=== PATIENT | male | born 1935 | race African-American/Black ===

== ENCOUNTER 2017-02-04 06:56 | Inpatient (IN) | payer MEDICARE, MEDICAID ==
[2017-02-04] MEDS ORDERED: NORMAL SALINE 1000 ML 1,000 ML IV ONE (07:09)
[2017-02-04] MEDS ORDERED: IPRATROPIUM/ALBUTEROL 0.5-2.5 MG/3 ML AMPUL NEB ONE (07:09)
--- NOTE | 2017-02-04 07:16 | ER Document Report ---
ED General - General Stated Complaint: BREATHING DIFFICULTY Time Seen by Provider: 02/04/17 06:59 Mode of Arrival: Medic Information source: Emergency Med Personnel, Outside Facility Records Cannot obtain history due to: Altered mental status Notes: 81-year-old male DO NOT RESUSCITATE presents from care facility with concerns for altered mental status respiratory distress. Patient was found by EMS to be satting in the mid 70s responsive only to painful stimuli, I was obtained in the left anterior tib-fib, patient's blood pressure was noted to be 60s over 40s. Per facility patient has not been taking his medications over the past few days and has not been eating or drinking TRAVEL OUTSIDE OF THE [place] IN LAST 30 DAYS: No - HPI Onset: Last week Onset/Duration: Persistent - Related Data Allergies/Adverse Reactions: No Known Allergies Allergy (Verified 08/02/15 08:51) Past Medical History - Social History Smoking Status: Never Smoker Cigarette use (# per day): No Chew tobacco use (# tins/day): No Smoking Education Provided: No Family History: Reviewed & Not Pertinent - Past Medical History Cardiac Medical History: Reports: Hx DVT, Hx Hypercholesterolemia, Hx Hypertension, Hx Peripheral Vascular Disease Pulmonary Medical History: Denies: Hx Tuberculosis - UNKNOWN Neurological Medical History: Reports: Hx Cerebrovascular Accident - left side deficit, Hx Seizures Endocrine Medical History: Reports: Hx Diabetes Mellitus Type 2 Renal/ Medical History: Reports: Hx Benign Prostatic Hyperplasia GI Medical History: Reports: Hx Gastroesophageal Reflux Disease Musculoskeltal Medical History: Reports Hx Arthritis, Reports Hx Musculoskeletal Deformity, Reports Hx Musculoskeletal Trauma Psychiatric Medical History: Reports: Hx Dementia, Hx Depression Past Surgical History: Reports: Hx Vascular Surgery - IVC filter. Denies: Hx Pacemaker - Immunizations Immunizations up to date: Yes Hx Diphtheria, Pertussis, Tetanus Vaccination: Yes Hx Pneumococcal Vaccination: 07/08/03 Review of Systems - Review of Systems Notes: PHYSICAL EXAMINATION: GENERAL: Ill-appearing male moderate respiratory distress cachectic HEAD: Atraumatic, normocephalic. EYES: Pupils equal round and reactive to light, extraocular movements intact, sclera anicteric, conjunctiva are normal. ENT: Nares patent, oropharynx clear without exudates. Moist mucous membranes. NECK: Normal range of motion, supple without lymphadenopathy LUNGS: Coarse breath sounds all throughout HEART: Tachycardic ABDOMEN: Soft, nontender, nondistended abdomen. No guarding, no rebound. No masses appreciated. Musculoskeletal: Normal range of motion, no pitting or edema. No cyanosis. NEUROLOGICAL: Responds to painful stimuli only, GCS 6 SKIN: Cold to touch Physical Exam - Vital signs Vitals: Temp Pulse Resp BP Pulse Ox 95.2 F L 107 H 45 H 60/52 L 85 L 02/04/17 07:00 02/04/17 07:00 02/04/17 07:00 02/04/17 07:00 02/04/17 07:00 Course - Re-evaluation Re-evalutation: 02/04/17 07:22 Patient was immediately bagged on arrival, nonrebreather was placed, lab work imaging are pending at this time. I have very poor prognosis for this patient given his DO NOT RESUSCITATE status 02/04/17 08:05 Spoke with family 02/04/17 08:14 Chest x-ray is consistent with pneumonia, patient meets sepsis criteria, levaquin started - Vital Signs Vital signs: Temp Pulse Resp BP Pulse Ox 95.2 F L 107 H 36 H 72/51 L 90 L 02/04/17 07:00 02/04/17 07:08 02/04/17 08:01 02/04/17 08:01 02/04/17 07:08 - Laboratory Result Diagrams: 02/04/17 07:26 02/04/17 07:26 Laboratory results interpreted by me: 02/04/17 07:26 WBC 29.1 H Hgb 12.4 L MCHC 31.7 L RDW 15.6 H Seg Neuts % (Manual) 85 H Band Neutrophils % 2 L Lymphocytes % (Manual) 7 L Metamyelocytes % 1 H Abs Neuts (Manual) 25.6 H Abs Monocytes (Manual) 1.5 H Critical Care Note - Critical Care Note Total time excluding time spent on procedures (mins): 40 Comments: 40 minutes of critical care time spent in direct contact evaluating and reevaluating the patient, treating symptoms, reviewing labs and studies and speaking with family and consultants excluding any procedures Discharge - Discharge Clinical Impression: Unresponsive state Sepsis Qualifiers: Sepsis type: sepsis due to unspecified organism Qualified Code(s): A41.9 - Sepsis, unspecified organism Pneumonia Qualifiers: Pneumonia type: due to unspecified organism Laterality: right Lung location: upper lobe of lung Qualified Code(s): J18.1 - Lobar pneumonia, unspecified organism Admitting Provider: [facility] Unit Admitted: Telemetry
[2017-02-04 07:43] LABS: HEMATOCRIT 39.2 % (37.9-51.0); HEMOGLOBIN 12.4 g/dL (13.5-17.0); MEAN CORPUSCULAR HEMOGLOBIN 27.6 pg (27.0-33.4); MEAN CORPUSCULAR HGB CONC 31.7 g/dL (32.0-36.0); MEAN CORPUSCULAR VOLUME 87 fl (80-97); RED CELL DISTRIBUTION WIDTH 15.6 % (11.5-14.0); WHITE BLOOD COUNT 29.1 10^3/uL (4.0-10.5)
[2017-02-04 07:59] LABS: ANISOCYTOSIS SLIGHT; BAND NEUTROPHILS % (MANUAL) 2 % (3-5); BASOPHILS % (MANUAL) 0 % (0-2); EOSINOPHILS % (MANUAL) 0 % (0-6); LYMPHOCYTES % (MANUAL) 7 % (13-45); NUCLEATED RED BLOOD CELLS 1 /100 WBC (0); PLATELET CLUMPS PRESENT; POLYCHROMASIA SLIGHT; ROULEAUX 2+; TOTAL CELLS COUNTED 100; TOXIC GRANULATION 1+; TOXIC VACUOLATION PRESENT
[2017-02-04] MEDS ORDERED: LEVOFLOXACIN 750 MG/D5W RTU 150 ML IV ONE (08:13)
[2017-02-04] MEDS ORDERED: NORMAL SALINE 1000 ML 1,000 ML IV PRN ×3 (08:14→17:57)
[2017-02-04 09:04] LABS: ALANINE AMINOTRANSFERASE 102 U/L (21-72); ALBUMIN 2.9 g/dL (3.5-5.0); ALKALINE PHOSPHATASE 135 U/L (38-126); ASPARTATE AMINO TRANSFERASE 172 U/L (17-59); BILIRUBIN,DIRECT 0.9 mg/dL (0.0-0.4); BILIRUBIN,TOTAL 0.9 mg/dL (0.2-1.3); BLOOD UREA NITROGEN 99 mg/dL (7-20); CALCIUM 8.2 mg/dL (8.4-10.2); CREATINE KINASE 557 U/L (55-170); GLUCOSE 351 mg/dL (75-110); TOTAL PROTEIN 7.5 g/dL (6.3-8.2)
[2017-02-04 09:13] LABS: CREATINE KINASE MB 0.61 ng/mL (<4.55)
[2017-02-04 09:14] LABS: ANION GAP 22 (5-19); CARBON DIOXIDE 17 mmol/L (22-30); CHLORIDE 124 mmol/L (98-107); POTASSIUM 4.9 mmol/L (3.6-5.0); SODIUM 162.9 mmol/L (137-145)
[2017-02-04 09:16] LABS: TROPONIN I 0.036 ng/mL
[2017-02-04 15:38] LABS: APPEARANCE,URINE TURBID; BILIRUBIN,URINE SMALL (NEGATIVE); GLUCOSE, URINE 150 mg/dL (NEGATIVE); KETONES,URINE TRACE mg/dL (NEGATIVE); LEUKOCYTE ESTERASE,URINE SMALL (NEGATIVE); NITRITE,URINE NEGATIVE (NEGATIVE); PROTEIN,URINE 100 mg/dL (NEGATIVE); URINE SPECIFIC GRAVITY 1.026
[2017-02-04] MEDS ORDERED: ENOXAPARIN SODIUM INJ 30 MG/0.3 ML DISP.SYRIN SUBCUT ONE (17:00)
--- NOTE | 2017-02-04 17:03 | EKG REPORT ---
SEVERITY:- ABNORMAL ECG - SINUS TACHYCARDIA BORDERLINE LEFT AXIS DEVIATION PROBABLE POSTERIOR INFARCT ABNORMAL T, CONSIDER ISCHEMIA, LATERAL LEADS : Confirmed by: Sarahy Gallegos 04-Feb-2017 17:01:43
[2017-02-04 17:21] LABS: LIPASE 150.7 U/L (23-300)
[2017-02-04 17:33] LABS: CREATINE KINASE MB 2.3 ng/mL (<4.55); TROPONIN I 0.036 ng/mL
[2017-02-04 17:51] LABS: THYROID STIMULATING HORMONE 1.32 uIU/mL (0.47-4.68)
[2017-02-04] MEDS: CEFEPIME 1 GM/D5W RTU 1 GM/50 ML RTUPB IV SCH (18:02)
[2017-02-04 22:15] LABS: ARTERIAL BLOOD BASE EXCESS -8.4 mmol/L; ARTERIAL BLOOD O2 SATURATION 94.6 % (94-98)
[2017-02-04 22:51] LABS: CREATINE KINASE MB 2.74 ng/mL (<4.55); TROPONIN I 0.048 ng/mL
[2017-02-05 05:07] LABS: HEMATOCRIT 33.9 % (37.9-51.0); HEMOGLOBIN 10.6 g/dL (13.5-17.0); HGB HCT DIFFERENCE -2.1; MEAN CORPUSCULAR HEMOGLOBIN 27.6 pg (27.0-33.4); MEAN CORPUSCULAR HGB CONC 31.2 g/dL (32.0-36.0); MEAN CORPUSCULAR VOLUME 89 fl (80-97); RED BLOOD COUNT 3.83 10^6/uL (4.35-5.55); RED CELL DISTRIBUTION WIDTH 16.3 % (11.5-14.0)
[2017-02-05 05:13] LABS: ALANINE AMINOTRANSFERASE 147 U/L (21-72); ALBUMIN 2.8 g/dL (3.5-5.0); ALKALINE PHOSPHATASE 139 U/L (38-126); ASPARTATE AMINO TRANSFERASE 277 U/L (17-59); BILIRUBIN,DIRECT 0.5 mg/dL (0.0-0.4); BILIRUBIN,TOTAL 0.5 mg/dL (0.2-1.3); BLOOD UREA NITROGEN 103 mg/dL (7-20); CALCIUM 7.9 mg/dL (8.4-10.2); CARBON DIOXIDE 15 mmol/L (22-30); CREATINE KINASE 895 U/L (55-170); CREATININE RESULT 3.59 mg/dL (0.52-1.25); GLUCOSE 364 mg/dL (75-110); TOTAL PROTEIN 6.8 g/dL (6.3-8.2)
[2017-02-05] MEDS: CEFEPIME 1 GM/D5W RTU 1 GM/50 ML RTUPB IV SCH ×2 (05:13→17:40)
[2017-02-05 05:15] LABS: POTASSIUM 4.8 mmol/L (3.6-5.0)
[2017-02-05 05:20] LABS: CREATINE KINASE MB 2.5 ng/mL (<4.55); TROPONIN I 0.04 ng/mL
[2017-02-05 05:23] LABS: CHLORIDE 127 mmol/L (98-107); SODIUM 164.3 mmol/L (137-145)
[2017-02-05 05:24] LABS: ANION GAP 22 (5-19)
[2017-02-05] MEDS ORDERED: ACETAMINOPHEN 325 MG TABLET PO PRN (07:41)
[2017-02-05] MEDS ORDERED: CALCIUM CARBONATE 250 MG/VITAMIN D3 125 UNIT TABLET PO SCH (08:00)
[2017-02-05] MEDS: ENOXAPARIN SODIUM INJ 30 MG/0.3 ML DISP.SYRIN SUBCUT SCH (08:37)
[2017-02-05] MEDS: CALCIUM CARBONATE 250 MG/VITAMIN D3 125 UNIT TABLET PO SCH (08:41)
[2017-02-05] MEDS: ASPIRIN 81 MG TABLET, CHEWABLE PO SCH (09:53)
[2017-02-05] MEDS: PIOGLITAZONE HCL 30 MG TABLET PO SCH (09:53)
[2017-02-05] MEDS ORDERED: DEXTROSE 50%-WATER SYRINGE 12.5 GM/25 ML DOSE IV PRN (09:57)
[2017-02-05] MEDS ORDERED: DEXTROSE 40% GEL 15 GM TUBE X 2 PO PRN (09:57)
[2017-02-05] MEDS ORDERED: DEXTROSE 50%-WATER SYRINGE 25 GM/50 ML DOSE IV PRN (09:57)
[2017-02-05] MEDS ORDERED: GLUCAGON,HUMAN RECOMB 1 MG INJ IM PRN (09:57)
[2017-02-05] MEDS ORDERED: DEXTROSE 40% GEL 15 GM TUBE PO PRN (09:57)
[2017-02-05] MEDS ORDERED: (PENDING PHARMACY ID) (Calcium Carbonate/Vitamin D3 [Oyster Shell 500-Vit D3 200 Tb] 1 TAB PO SCH (10:00)
[2017-02-05] MEDS: DEXTROSE 5%-WATER 1000 ML 1,000 ML IV PRN (10:33)
[2017-02-05] MEDS: INSULIN LISPRO 100 UNIT/ML 3 ML VIAL SUBCUT SCH ×3 (12:13→23:50)
[2017-02-05] MEDS: PHENYTOIN 50 MG TAB.CHEW PO SCH ×2 (13:10→21:34)
[2017-02-05] MEDS: DIVALPROEX SODIUM 125 MG CAP.SPRINK PO SCH ×2 (13:10→21:34)
--- NOTE | 2017-02-05 16:21 | PDOC H&P ---
History of Present Illness Admission Date/PCP: 02/04/17 15:50 KAREL CARDOSO MD History of Present Illness: ROBERT STEPHENS is a 81 year old male, a DO NOT RESUSCITATE status, [facility] he was [facility] from the [facility]iary to the hospital because of altered mental status, he has advanced dementia the emergency room was evaluated was found to be in septic shock the blood pressure recorded was 79 systolic with severe leukocytosis, 29,000 and severe hypernatremia, there is associated acute kidney injury, no history could be obtained from patient. He has indwelling Walker catheter Past Medical History Cardiac Medical History: Reports: DVT, Hyperlipidema, Hypertension, Peripheral Vascular Disease Neurological Medical History: Reports: Seizures Endocrine Medical History: Reports: Diabetes Mellitus Type 2 GI Medical History: Reports: Gastroesophageal Reflux Disease Musculoskeltal Medical History: Reports: Arthritis Psychiatric Medical History: Reports: Dementia, Depression Past Surgical History Past Surgical History: Reports: Vascular Surgery - IVC filter Denies: Pacemaker Social History Smoking Status: Unknown if Ever Smoked Frequency of Alcohol Use: None Hx Recreational Drug Use: No Drugs: None Hx Prescription Drug Abuse: No Family History Family History: Reviewed & Not Pertinent Parental Family History Reviewed: Yes Children Family History Reviewed: Yes Sibling(s) Family History Reviewed.: Yes Medication/Allergy Home Medications: Acetaminophen [Tylenol 325 mg Tablet] 325 mg PO Q6HP PRN 02/04/17 Aspirin [Aspirin 81 mg Chewable Tablet] 81 mg PO DAILY 02/04/17 Atorvastatin Calcium [Lipitor 20 mg Tablet] 20 mg PO QHS 02/04/17 Calcium Carbonate/Vitamin D3 [Oyster Shell Calcium-Vit D Tab] 1 tab PO DAILY 06/15 Divalproex Sodium [Depakote Sprinkle 125 Mg Capsule] 250 mg PO Q8 02/04/17 Insulin Aspart [Novolog Insulin 100 Unit/1 ml 10 ml] 0 unit SUBCUT .SLD SCALE Insulin Glargine,Hum.rec.anlog [Lantus Insulin Inj 300 Unit/3 ml Pen] 8 unit SUBCUT QHS 02/04/17 Lisinopril [Zestril] 5 mg PO DAILY 02/04/17 Multivitamin/Iron/Folic Acid [Centrum Complete Multivit Tab] 1 tab PO DAILY 06/15 Phenytoin [Dilantin 50 Mg Chewable Infatab] 100 mg PO Q8 02/04/17 Pioglitazone HCl [Actos] 30 mg PO DAILY 02/04/17 RX: Omeprazole 20 mg PO DAILY 02/04/17 Sennosides [Senna] 8.6 mg PO DAILY 02/04/17 Allergies/Adverse Reactions: No Known Allergies Allergy (Verified 08/02/15 08:51) Review of Systems ROS unobtainable: Due to mental status Physical Exam Vital Signs: Temp Pulse Resp BP Pulse Ox 98.9 F 91 19 97/53 L 97 02/05/17 15:24 02/05/17 15:24 02/05/17 15:24 02/05/17 15:24 02/05/17 15:24 Intake & Output 02/04/17 02/05/17 02/06/17 06:59 06:59 06:59 Intake Total 1049 Output Total 0 700 Balance 1049 -700 Weight 72.6 kg General appearance: PRESENT: other - Unresponsive Respiratory exam: PRESENT: clear to auscultation farrukh Cardiovascular exam: PRESENT: +S1, +S2 GI/Abdominal exam: PRESENT: soft Neurological exam: PRESENT: altered Results Laboratory Results: 02/05/17 03:57 02/05/17 03:57 02/04/17 02/04/17 02/04/17 16:30 16:30 21:55 WBC RBC Hgb Hct MCV MCH MCHC RDW Plt Count Carbonic Acid 1.05 HCO3/H2CO3 Ratio 16:1 ABG pH 7.30 L ABG pCO2 34.9 L ABG pO2 78.6 L ABG HCO3 16.9 L ABG O2 Saturation 94.6 ABG Base Excess -8.4 FiO2 6L Sodium Potassium Chloride Carbon Dioxide Anion Gap BUN Creatinine Est GFR ( Amer) Est GFR (Non-Af Amer) Glucose Calcium Total Bilirubin AST ALT Alkaline Phosphatase Total Protein Albumin Amylase 44 Lipase 150.7 TSH 1.32 Free T4 1.44 02/05/17 02/05/17 03:57 03:57 WBC 20.0 H RBC 3.83 L Hgb 10.6 L Hct 33.9 L MCV 89 MCH 27.6 MCHC 31.2 L RDW 16.3 H Plt Count 170 Carbonic Acid HCO3/H2CO3 Ratio ABG pH ABG pCO2 ABG pO2 ABG HCO3 ABG O2 Saturation ABG Base Excess FiO2 Sodium 164.3 H Potassium 4.8 Chloride 127 H Carbon Dioxide 15 L Anion Gap 22 H BUN 103 H Creatinine 3.59 H Est GFR ( Amer) 20 L Est GFR (Non-Af Amer) 16 L Glucose 364 H Calcium 7.9 L Total Bilirubin 0.5 AST 277 H ALT 147 H Alkaline Phosphatase 139 H Total Protein 6.8 Albumin 2.8 L Amylase Lipase TSH Free T4 02/04/17 02/04/17 02/04/17 16:30 16:30 21:59 Creatine Kinase 816 H 917 H CK-MB (CK-2) 2.30 Troponin I 0.036 02/04/17 02/05/17 02/05/17 21:59 03:57 03:57 Creatine Kinase 895 H CK-MB (CK-2) 2.74 2.50 Troponin I 0.048 0.040 Impressions: Chest X-Ray 02/04/17 07:08 IMPRESSION: Patchy right basilar infiltrate. Assessment & Plan - Diagnosis (1) Septic shock Is this a current diagnosis for this admission?: YesPlan: Patient in septic shock, unresponsive, acute kidney injury, he be given IV fluid IV antibiotic (2) Hypernatremia Is this a current diagnosis for this admission?: Yes (3) Acute kidney injury Is this a current diagnosis for this admission?: Yes (4) Urinary tract infection associated with indwelling urethral catheter Qualifiers: Encounter type: initial encounter Qualified Code(s): T83.511A - Infection and inflammatory reaction due to indwelling urethral catheter, initial encounter; N39.0 - Urinary tract infection, site not specified Is this a current diagnosis for this admission?: Yes (5) Dehydration Is this a current diagnosis for this admission?: Yes (6) Diabetes mellitus Qualifiers: Diabetes mellitus type: type 2 Diabetes mellitus complication detail: with unspecified neuropathy (7) Hypernatremia Is this a current diagnosis for this admission?: Yes (8) Hypotension Qualifiers: Hypotension type: unspecified hypotension type Qualified Code(s): I95.9 - Hypotension, unspecified Is this a current diagnosis for this admission?: YesPlan: The focus now is to restore blood pressure, he will be resuscitated with fluid was he is hemodynamically stable, the IV fluid be changed to 5% dextrose because of severe hypernatremia. (9) Metabolic encephalopathy Is this a current diagnosis for this admission?: Yes
--- NOTE | 2017-02-05 17:08 | PDOC PROGRESS REPORT ---
Subjective Progress Note for:: 02/05/17 Subjective:: Patient still stuporous but arousable Physical Exam Vital Signs: Temp Pulse Resp BP Pulse Ox 98.9 F 91 19 97/53 L 97 02/05/17 15:24 02/05/17 15:24 02/05/17 15:24 02/05/17 15:24 02/05/17 15:24 Intake & Output 02/04/17 02/05/17 02/06/17 06:59 06:59 06:59 Intake Total 1049 Output Total 0 700 Balance 1049 -700 Weight 72.6 kg Eye exam: PRESENT: PERRLA Respiratory exam: PRESENT: clear to auscultation farrukh Cardiovascular exam: PRESENT: +S1, +S2 GI/Abdominal exam: PRESENT: soft Results Laboratory Results: 02/05/17 03:57 02/05/17 03:57 02/04/17 02/04/17 02/04/17 16:30 16:30 21:55 WBC RBC Hgb Hct MCV MCH MCHC RDW Plt Count Carbonic Acid 1.05 HCO3/H2CO3 Ratio 16:1 ABG pH 7.30 L ABG pCO2 34.9 L ABG pO2 78.6 L ABG HCO3 16.9 L ABG O2 Saturation 94.6 ABG Base Excess -8.4 FiO2 6L Sodium Potassium Chloride Carbon Dioxide Anion Gap BUN Creatinine Est GFR ( Amer) Est GFR (Non-Af Amer) Glucose Calcium Total Bilirubin AST ALT Alkaline Phosphatase Total Protein Albumin Amylase 44 Lipase 150.7 TSH 1.32 Free T4 1.44 02/05/17 02/05/17 03:57 03:57 WBC 20.0 H RBC 3.83 L Hgb 10.6 L Hct 33.9 L MCV 89 MCH 27.6 MCHC 31.2 L RDW 16.3 H Plt Count 170 Carbonic Acid HCO3/H2CO3 Ratio ABG pH ABG pCO2 ABG pO2 ABG HCO3 ABG O2 Saturation ABG Base Excess FiO2 Sodium 164.3 H Potassium 4.8 Chloride 127 H Carbon Dioxide 15 L Anion Gap 22 H BUN 103 H Creatinine 3.59 H Est GFR ( Amer) 20 L Est GFR (Non-Af Amer) 16 L Glucose 364 H Calcium 7.9 L Total Bilirubin 0.5 AST 277 H ALT 147 H Alkaline Phosphatase 139 H Total Protein 6.8 Albumin 2.8 L Amylase Lipase TSH Free T4 02/04/17 02/04/17 02/04/17 16:30 16:30 21:59 Creatine Kinase 816 H 917 H CK-MB (CK-2) 2.30 Troponin I 0.036 02/04/17 02/05/17 02/05/17 21:59 03:57 03:57 Creatine Kinase 895 H CK-MB (CK-2) 2.74 2.50 Troponin I 0.048 0.040 Impressions: Chest X-Ray 02/04/17 07:08 IMPRESSION: Patchy right basilar infiltrate. Assessment & Plan - Diagnosis (1) Septic shock Is this a current diagnosis for this admission?: Yes (2) Hypernatremia Is this a current diagnosis for this admission?: YesPlan: Change IV fluid to 5% dextrose (3) Acute kidney injury Is this a current diagnosis for this admission?: Yes (4) Urinary tract infection associated with indwelling urethral catheter Qualifiers: Encounter type: initial encounter Qualified Code(s): T83.511A - Infection and inflammatory reaction due to indwelling urethral catheter, initial encounter; N39.0 - Urinary tract infection, site not specified Is this a current diagnosis for this admission?: Yes (5) Dehydration Is this a current diagnosis for this admission?: Yes (6) Diabetes mellitus Qualifiers: Diabetes mellitus type: type 2 Diabetes mellitus complication detail: with unspecified neuropathy (7) Hypernatremia Is this a current diagnosis for this admission?: Yes (8) Hypotension Qualifiers: Hypotension type: unspecified hypotension type Qualified Code(s): I95.9 - Hypotension, unspecified Is this a current diagnosis for this admission?: Yes (9) Metabolic encephalopathy Is this a current diagnosis for this admission?: Yes
[2017-02-05] MEDS ORDERED: INSULIN GLARGINE,HUM.REC.ANLOG 300 UNIT/3 ML INSULN.PEN SUBCUT SCH (22:00)
[2017-02-05] MEDS ORDERED: ATORVASTATIN CALCIUM 20 MG TABLET PO SCH (22:00)
[2017-02-06] MEDS: DEXTROSE 5%-WATER 1000 ML 1,000 ML IV PRN (01:43)
[2017-02-06] MEDS: CEFEPIME 1 GM/D5W RTU 1 GM/50 ML RTUPB IV SCH (05:09)
[2017-02-06] MEDS: PHENYTOIN 50 MG TAB.CHEW PO SCH ×2 (05:12→15:00)
[2017-02-06] MEDS: DIVALPROEX SODIUM 125 MG CAP.SPRINK PO SCH ×2 (05:12→15:00)
[2017-02-06] MEDS: INSULIN LISPRO 100 UNIT/ML 3 ML VIAL SUBCUT SCH ×2 (06:02→12:27)
[2017-02-06 07:00] LABS: ALANINE AMINOTRANSFERASE 218 U/L (21-72); ALBUMIN 2.9 g/dL (3.5-5.0); ALKALINE PHOSPHATASE 182 U/L (38-126); ASPARTATE AMINO TRANSFERASE 518 U/L (17-59); BILIRUBIN,DIRECT 0.6 mg/dL (0.0-0.4); BILIRUBIN,TOTAL 0.6 mg/dL (0.2-1.3); BLOOD UREA NITROGEN 109 mg/dL (7-20); CALCIUM 8.6 mg/dL (8.4-10.2); CREATININE RESULT 3.11 mg/dL (0.52-1.25); GLUCOSE 315 mg/dL (75-110); TOTAL PROTEIN 7.2 g/dL (6.3-8.2)
[2017-02-06 07:08] LABS: HEMATOCRIT 34.5 % (37.9-51.0); HEMOGLOBIN 10.4 g/dL (13.5-17.0); HGB HCT DIFFERENCE -3.3; MEAN CORPUSCULAR HEMOGLOBIN 26.9 pg (27.0-33.4); MEAN CORPUSCULAR HGB CONC 30.1 g/dL (32.0-36.0); MEAN CORPUSCULAR VOLUME 90 fl (80-97); RED BLOOD COUNT 3.86 10^6/uL (4.35-5.55); RED CELL DISTRIBUTION WIDTH 16.5 % (11.5-14.0); WHITE BLOOD COUNT 24.7 10^3/uL (4.0-10.5)
[2017-02-06 07:23] LABS: ANION GAP 19 (5-19); CARBON DIOXIDE 18 mmol/L (22-30); CHLORIDE 128 mmol/L (98-107); POTASSIUM 4.6 mmol/L (3.6-5.0); SODIUM 164.8 mmol/L (137-145)
[2017-02-06] MEDS ORDERED: LEVOFLOXACIN 500 MG/D5W RTU 500 MG/100 ML RTUPB IV SCH (08:00)
[2017-02-06] MEDS: PIOGLITAZONE HCL 30 MG TABLET PO SCH (09:20)
[2017-02-06] MEDS: ENOXAPARIN SODIUM INJ 30 MG/0.3 ML DISP.SYRIN SUBCUT SCH (09:20)
[2017-02-06] MEDS: CALCIUM CARBONATE 250 MG/VITAMIN D3 125 UNIT TABLET PO SCH (09:20)
[2017-02-06] MEDS: ASPIRIN 81 MG TABLET, CHEWABLE PO SCH (09:20)
--- NOTE | 2017-02-06 11:48 | Physician Advisory Note ---
Physician Advisor ProgressNote .: [facility] medical record for this patient. Physician Advisor Statement: Possible documentation opportunities if attending agrees: 1. "septic shock due to UTI" 2. "acute hypernatremia likely due to " [intravascular volume depletion?] 3. "CAROLANN likely due to " [severe sepsis w/shock?] 4. "Acute metabolic acidosis due to sepsis" 5. "Acute metabolic encephalopathy due to sepsis" As always, if concerned about any unstable VS or abnormal labs, please comment on them & note what doing about them, & please document each day the potential clinical problems you are concerned could occur if pt not kept in hospital for tx at this time. Thanks for your help with documentation accuracy/specificity improvement! Madisyn Landers MD [facility] Physician Advisor, Fellow of Hospital Medicine
[2017-02-06 12:38] VITALS: BP 78/41
--- NOTE | 2017-02-06 19:05 | Death Summary ---
Summary Date : 02/06/17 Time of :: 13:34 Resuscitation Status: Do Not Resuscitate - Final Diagnosis (1) Septic shock Is this a current diagnosis for this admission?: Yes (2) Hypernatremia Is this a current diagnosis for this admission?: Yes (3) Acute kidney injury Is this a current diagnosis for this admission?: Yes (4) Urinary tract infection associated with indwelling urethral catheter Is this a current diagnosis for this admission?: Yes (5) Dehydration Is this a current diagnosis for this admission?: Yes (6) Diabetes mellitus Is this a current diagnosis for this admission?: Yes (7) Hypernatremia Is this a current diagnosis for this admission?: Yes (8) Hypotension Is this a current diagnosis for this admission?: Yes (9) Metabolic encephalopathy Is this a current diagnosis for this admission?: Yes Hospital Course:: Patient was admitted in septic shock, resident of the group home, a DO NOT RESUSCITATE status, he has indwelling Walker catheter, that was associated hypernatremia, unresponsiveness acute kidney injury, shock liver. He was treated with IV antibiotic and he was fluid resuscitated. There was no improvement in patient's condition despite intervention with antibiotic and hydration, the blood pressure improved, the IV fluid was changed from normal saline to 5% dextrose. Despite the change patient remained hypernatremic. He today
== END 2017-02-06 16:13 | disposition expired | DRG 871 ==
LOC: ER 06:56 → UNDOADMIN 09:08 → EH 09:08 → 3W 20:09
PROVIDERS: ADMIT Internal Medicine; ATTEND Internal Medicine
DX: A41.9 Sepsis, unspecified organism (principal); R65.21 Severe sepsis with septic shock; G93.41 Metabolic encephalopathy; E87.0 Hyperosmolality and hypernatremia; N17.9 Acute kidney failure, unspecified; T83.511A Infection and inflammatory reaction due to indwelling urethral catheter, initial encounter; E86.0 Dehydration; Z66 Do not resuscitate; E78.5 Hyperlipidemia, unspecified; E11.51 Type 2 diabetes mellitus with diabetic peripheral angiopathy without gangrene; K21.9 Gastro-esophageal reflux disease without esophagitis; M19.90 Unspecified osteoarthritis, unspecified site; F03.90 Unspecified dementia, unspecified severity, without behavioral disturbance, psychotic disturbance, mood disturbance, and anxiety; N40.0 Benign prostatic hyperplasia without lower urinary tract symptoms; F32.9 Major depressive disorder, single episode, unspecified; I95.9 Hypotension, unspecified; Z86.718 Personal history of other venous thrombosis and embolism; Z79.4 Long term (current) use of insulin; Z79.82 Long term (current) use of aspirin
CPT/HCPCS: 36415; 36600; 71010; 80048; 80053; 80076; 81001; 82150; 82550; 82553; 82803; 82962; 83036; 83605; 83690; 83880; 84439; 84443; 84484; 85025; 85027; 85730; 87040; 87077; 87086; 87088; 87186; 93005; 93010; 94640; 96361; 96365; 99291; J0692; J1650; J1815; J1956; J7030; J7060; J7620